=== PATIENT | female | born 1990 | race Caucasian/White ===

== ENCOUNTER 2018-07-01 09:01 | Emergency (ER) | payer OTHER, SELFPAY ==
[2018-07-01 09:26] VITALS: BP 163/93; PULSE 90; RESP 13; TEMP 36.7; O2SAT 100
--- NOTE | 2018-07-01 09:38 | ED_ITS ---
HPI - Extremity Injury (Lower) General Chief Complaint: Extremity Injury, Lower Stated Complaint: PAIN IN HIP MOVING DOWN LEFT LEG, HURTS TO WALK Time Seen by Provider: 07/01/18 09:15 Source: patient Mode of arrival: ambulatory Limitations: no limitations History of Present Illness HPI Narrative: Patient is a 27-year-old female who presents with left hip and leg pain. She does have history of sciatica but she feels like this is different. She denies any injury. She says it has been hurting off and on for the last couple of days but today is significantly worse. He has pain radiating from her left buttock all the way down to her toes. She works 500 of naproxen and Excedrin this morning without any relief. Related Data Previous Rx's Medication Instructions Recorded cyclobenzaprine 10 mg PO BID PRN #6 tab 09/13/17 hydrocodone-acetaminophen [[place]] 1 tab PO Q4H PRN #18 tab 09/13/17 oxycodone-acetaminophen [Percocet] 0 tab PO Q4HP PRN #20 tab 10/04/17 diazepam 5 mg PO Q12HR PRN #10 tab 07/01/18 meloxicam 7.5 mg PO DAILY PRN #14 tab 07/01/18 Allergies Allergy/AdvReac Type Severity Reaction Status Date / Time No Known Drug Allergies Allergy Verified 07/01/18 09:35 Review of Systems Review of Systems GENERAL: Denies chills, fatigue, malaise, fever, sweats, travel HEENT: Denies sinus pain, ear pain, sore throat, difficulty swallowing, neck pain RESPIRATORY: Denies dyspnea, cough, wheezing, hemoptysis, sputum. CARDIOVASCULAR: Denies chest pain, palpitations, orthopnea, edema GASTROINTESTINAL: Denies nausea, vomiting, abdominal pain, diarrhea, constipation, melena. : Denies dysuria, frequency, incontinence, hematuria, urinary retention, flank pain. MUSCULOSKELETAL see HPI SKIN: No rash, no erythema, no pruritus NEUROLOGIC: Numbness tingling, left leg, see HPI PSYCHIATRIC: No concerning psychosocial issues. 12 point review of systems is negative except for those stated above and HPI PFSH Surgical History History of third molar tooth extraction Social History Smoking Status: Never smoker Exam Initial Vital Signs Initial Vital Signs: Vital Signs Temperature 98.1 F 07/01/18 09:26 Pulse Rate 90 07/01/18 09:26 Respiratory Rate 13 07/01/18 09:26 Blood Pressure 163/93 H 07/01/18 09:26 Pulse Oximetry 100 07/01/18 09:26 GENERAL: Well-appearing, well-nourished and in no acute distress. HEENT: Head atraumatic,EOMI, pupils reactive CARDIOVASCULAR: Regular rate and rhythm without murmurs, rubs or gallops. RESPIRATORY: Breath sounds equal bilaterally, no wheezes rales or rhonchi. ABDOMEN: Soft, nontender. Normoactive bowel sounds all 4 quadrants. No guarding or rebound. EXTREMITIES: Normal range of motion, no clubbing or edema. Neurovascularly intact. Mild at tenderness in left buttock and hip area no erythema sensation intact in lower extremities and equal bilaterally strong peripheral pulses NEUROLOGICAL: Alert and oriented x4.Normal gait and speech. Cranial nerves II through XII grossly intact. SKIN: Warm, dry, no laceration, no petechiae, no rashes or lesions. Course Orders Ordered: Discontinued Medications Diazepam (Valium) 5 mg PO NOW ONE Stop: 07/01/18 09:46 Last Admin: 07/01/18 09:58 Dose: 5 mg Ketorolac Tromethamine (Toradol) 60 mg IM NOW ONE Stop: 07/01/18 09:46 Last Admin: 07/01/18 09:58 Dose: 60 mg Vital Signs - 8 hr 07/01/18 09:26 Temperature 98.1 F Pulse Rate 90 Respiratory Rate 13 Blood Pressure 163/93 H Pulse Oximetry 100 MDM - Extremity Injury (Lower) MDM Narrative Medical decision making narrative: patient is feeling only slightly better after Valium and Toradol. She says that she has had Percocet and [place] in the past for her sciatic pain. States today she will only be getting Meloxicam and Valium. She feels ready to go. Discharge Plan Departure Patient Disposition: Home Clinical Impression: Back pain Discharge Date/Time: 07/01/18 10:40 Interventions: ED Discharge Assessment Last Done: 07/01/18 10:39 Instructions: DI for Back Pain With Sciatica Activity Restrictions/Additional Instructions: *You have been diagnosed with back pain with sciatica *What to do: Light activity is encouraged, try heating pad *Continue to take medications as directed Valium 5 mg every 12 hr if needed for spasm Mobic 7.5 mg once a day if needed for qmpn-wz-qjavqogk pain do not combine with naproxen, Excedrin, Motrin, or Aleve, Advil or other NSAIDs *Follow up with your primary care provider in 2-3 days *Return to ER if you should have weakness, increasing pain, loss of urine or stool or any new, worsening or concerning symptoms Prescriptions: New meloxicam 7.5 mg tablet 7.5 mg PO DAILY PRN (Reason: pain, moderate) Qty: 14 RF: 0 diazepam 5 mg tablet 5 mg PO Q12HR PRN (Reason: muscle spasm) Qty: 10 RF: 0 No Action cyclobenzaprine 10 MG tablet 10 mg PO BID PRNQty: 6 RF: 0 hydrocodone-acetaminophen [[place]] 5 MG/325 MG tablet 1 tab PO Q4H PRNQty: 18 RF: 0 oxycodone-acetaminophen [Percocet] 5 MG/325 MG tablet PO Q4HP PRNQty: 20 RF: 0
[2018-07-01] MEDS: KETOROLAC 60 MG/2 ML VIAL IM (09:58)
[2018-07-01] MEDS: diazePAM 5 MG TABLET PO (09:58)
[2018-07-01 10:38] VITALS: BP 143/106; PULSE 88; RESP 22; O2SAT 100
[2018-07-01 10:39] VITALS: BP 138/61; PULSE 77; RESP 16; O2SAT 100
== END 2018-07-01 10:40 | disposition home or self-care (01) ==
PROVIDERS: Emergency Provider Emergency Medicine
DX: M54.9 Dorsalgia, unspecified (principal)
CPT/HCPCS: 96372; 99282; 99283; J1885

== ENCOUNTER 2025-01-13 08:38 | Emergency (ER) | payer OTHER, SELFPAY ==
[2025-01-13] VITALS (11 sets, daily range): BP systolic 121–139; BP diastolic 80–87; PULSE 73–82; RESP 14–21; TEMP 37.1; O2SAT 98–100; BMI 30.4
--- NOTE | 2025-01-13 08:56 | EKG_ITS ---
[address] [address] Test Date: 2025-01-13 Pat Name: Estee Holder Department: Room: Gender: Female Supervisor Engraving: ALVARADO : 1990 Requested By: Order Number: [id number] Reading MD: Sadiq Bower MD Measurements Intervals [place] Rate: 77 P: 34 CT: 180 QRS: 32 QRSD: 80 T: 47 QT: 370 QTc: 418 Interpretive Statements Normal sinus rhythm Cannot rule out Anterior infarct , age undetermined Electronically Signed On 01-13-2025 9:35:14 PDT by Sadiq Bower MD
--- NOTE | 2025-01-13 09:10 | PC.NURSE ---
aaliyah report with multiple visits to [facility] and [facility] for CP and auditory hallucinations
[2025-01-13 09:11] LABS: Add Manual Diff / Slide Review NO; Basophils Absolute Auto 0 /uL (0-100); Basophils Percent Auto 0.6 % (0-2); Eosinophils Absolute Auto 0 /uL (0-450); Eosinophils Percent Auto 0.6 % (2-4); Hematocrit 43.4 % (36-46); Hemoglobin 14.8 g/dL (12.0-16.0); Lymphocytes Absolute Auto 1500 /uL (1100-4500); Lymphocytes Percent Auto 23.4 % (25-40); Mean Corpuscular HGB Conc 34.1 % (30-36); Mean Corpuscular Hemoglobin 30.5 PG (26-34); Mean Corpuscular Volume 89.7 fL (80-100); Monocytes Absolute Auto 500 /uL (0-900); Monocytes Percent Auto 7.7 % (3-14); Neutrophils Absolute Auto 4400 /uL (1500-7000); Neutrophils Percent Auto 67.7 % (50-75); Platelet Count 215 X10^3/uL (150-400); Red Blood Cell Count 4.83 X10^6/uL (4.0-5.2); Red Cell Distribution Width 14.3 % (11.6-14.8); White Blood Cell Count 6.5 X10^3/uL (4.5-11.0)
[2025-01-13 09:19] LABS: D Dimer < 215 ng/ml (<500)
[2025-01-13 09:23] LABS: Alanine Aminotransferase 27 IU/L (<35); Albumin 4.7 g/dL (3.5-5.0); Albumin Globulin Ratio 1.5 (1.0-2.8); Alkaline Phosphatase 44 U/L (38-126); Aspartate Aminotransferase 32 IU/L (14-36); BUN Creatinine Ratio 18.4 (6-22); Bilirubin Total 0.8 mg/dL (0.2-1.3); Blood Urea Nitrogen 16 mg/dL (7-17); Calcium 9.5 mg/dL (8.4-10.2); Carbon Dioxide 23 mmol/L (22-32); Chloride 104 mmol/L (98-107); Creatine Kinase 111 U/L (30-135); Estimated Glomerular Filt Rate > 60 mL/min (>60); Globulin 3.1 g/dL (1.7-4.1); Glucose 98 mg/dL (70-100); HEMOLYSIS 16 (0-50); Magnesium 1.9 mg/dL (1.6-2.3); Potassium 4.1 mmol/L (3.4-5.1); Sodium 139 mmol/L (137-145); Total Protein 7.8 g/dL (6.3-8.2)
--- NOTE | 2025-01-13 09:30 | ED.ARRPALP ---
HPI - Arrhythmia/Palpitations General Chief Complaint: Arrhythmia/Palpitations Stated Complaint: Leonard off and on double heart beat. Time Seen by Provider: 01/13/25 09:00 History of Present Illness HPI narrative: Patient here for multiple complaints including palpitations generalized numbness tingling to the skull hands and feet, also a few days ago had epistaxis with ear fullness. Patient was seen by primary care recently and had blood work done. Patient denies any heart attack strokes diabetes. No personal or family history of arrhythmias or thyroid disease. Denies any new medications or foods or diet. No recent cough cold congestion fever chills. No new products. Related Data Previous Rx's Medication Instructions Recorded cyclobenzaprine 10 mg tablet 10 mg PO BID PRN #6 tabs 09/13/17 hydrocodone 5 mg-acetaminophen 325 1 tab PO Q4H PRN #18 tabs 09/13/17 mg tablet (Blaine) oxycodone-acetaminophen 5 mg-325 0 tab PO Q4HP PRN #20 tabs 10/04/17 mg tablet (Percocet) diazepam 5 mg tablet 5 mg PO Q12HR PRN muscle spasm #10 07/01/18 tabs meloxicam 7.5 mg tablet 7.5 mg PO DAILY PRN pain, moderate 07/01/18 #14 tabs Allergies Allergy/AdvReac Type Severity Reaction Status Date / Time No Known Drug Allergies Allergy Verified 07/01/18 09:35 Review of Systems Review of Systems Narrative: GENERAL: Negative chills, fatigue, malaise, fever, sweats. HEENT: Negative sinus pain, positive ear pain, negative sore throat, positive epistaxis RESPIRATORY: Negative dyspnea, cough CARDIOVASCULAR: Negative chest pain, positive palpitations GASTROINTESTINAL: Negative vomiting, nausea, abdominal pain : Negative dysuria, frequency, hematuria MUSCULOSKELETAL: Negative muscle or bony pain SKIN: Negative rash, skin lesions NEUROLOGIC: Negative weakness, positive tingling in numbness ROS Unobtainable: All systems reviewed & are unremarkable except as noted in HPI and below Patient History Surgical History (Updated 02/25/18 @ 06:07 by Conversion Provider) History of third molar tooth extraction Social History Smoking Status: Never smoker Smoking Status: Never smoker Exam Narrative Exam Narrative: GENERAL: in no distress, not toxic not dyspneic HEAD: Normocephalic. EYES: Pupils equal round ENT: Mucous membranes moist. NECK: Trachea midline. No thyromegaly CARDIOVASCULAR: Regular rate and rhythm no murmur RESPIRATORY: Clear to auscultation. Breath sounds equal bilaterally. No wheezes, rales, or rhonchi. GASTROINTESTINAL: Abdomen soft, non-tender EXTREMITIES: No gross deformities. BACK: No flank tenderness. NEURO: AOx4. Clear speech SKIN: Warm and dry PSYCH: Not anxious, is cooperative Initial Vital Signs Initial Vital Signs: Vital Signs Pulse Rate 82 01/13/25 08:44 Blood Pressure 139/81 01/13/25 08:44 Pulse Oximetry 98 01/13/25 08:44 Course Orders Ordered: ED Orders 01/13/25 08:55 Complete Blood Count AUTO DIFF Stat Comprehensive Metabolic Panel Stat D Dimer Stat Magnesium Stat PT [Prothrombin Time INR] Stat PTT Partial Thromboplastin Kan Stat Test Serum,Qual Stat TSH [Thyroid Stimulating Hormone] Stat Troponin & CK Cardiac Panel Stat 01/13/25 09:00 EKG-12 Lead Stat 01/13/25 09:29 XR chest 1V Stat 01/13/25 09:50 Covid-19 + FLU A/B + RSV - PCR Stat Vital Signs Vital signs: Vital Signs - 8 hr 01/13/25 08:44 01/13/25 08:44 01/13/25 08:57 Temperature 98.7 F Pulse Rate 82 75 Respiratory Rate 16 Blood Pressure 139/81 139/81 Pulse Oximetry 98 100 Oxygen Delivery Method Room Air 01/13/25 08:59 01/13/25 08:59 01/13/25 09:00 Temperature Pulse Rate 80 78 Respiratory Rate 14 19 Blood Pressure 129/86 Pulse Oximetry 100 100 Oxygen Delivery Method 01/13/25 09:00 01/13/25 09:30 01/13/25 09:30 Temperature Pulse Rate 77 Respiratory Rate 16 Blood Pressure 132/85 129/84 Pulse Oximetry 100 Oxygen Delivery Method 01/13/25 10:00 01/13/25 10:00 01/13/25 10:30 Temperature Pulse Rate 73 74 Respiratory Rate 17 14 Blood Pressure 130/85 Pulse Oximetry 100 100 Oxygen Delivery Method 01/13/25 10:30 Temperature Pulse Rate Respiratory Rate Blood Pressure 121/82 Pulse Oximetry Oxygen Delivery Method MDM - Arrhythmia/Palpitations Lab Data 01/13/25 08:55 01/13/25 08:55 Labs: Lab Results 01/13/25 01/13/25 Range/Units 08:55 09:50 WBC 6.5 (4.5-11.0) X10^3/uL RBC 4.83 (4.0-5.2) X10^6/uL Hgb 14.8 (12.0-16.0) g/dL Hct 43.4 (36-46) % MCV 89.7 (80-100) fL MCH 30.5 (26-34) PG MCHC 34.1 (30-36) % RDW 14.3 (11.6-14.8) % Plt Count 215 (150-400) X10^3/uL Neut % (Auto) 67.7 (50-75) % Lymph % (Auto) 23.4 L (25-40) % [place] % (Auto) 7.7 (3-14) % Eos % (Auto) 0.6 L (2-4) % Baso % (Auto) 0.6 (0-2) % Neut # (Auto) 4400 (3460-6465) /uL Lymph # (Auto) 1500 (9520-9644) /uL [place] # (Auto) 500 (0-900) /uL Eos # (Auto) 0 (0-450) /uL Baso # (Auto) 0 (0-100) /uL PT 12.8 H (9.4-12.5) SECONDS INR 1.1 (0.9-1.3) APTT 49 H (25.1-36.5) SECONDS D-Dimer < 215 (<500) ng/ml Sodium 139 (137-145) mmol/L Potassium 4.1 (3.4-5.1) mmol/L Chloride 104 (98-107) mmol/L Carbon Dioxide 23 (22-32) mmol/L BUN 16 (7-17) mg/dL Creatinine 0.87 (0.52-1.04) mg/dL Estimated GFR > 60 (>60) mL/min BUN/Creatinine Ratio 18.4 (6-22) Glucose 98 (70-100) mg/dL Calcium 9.5 (8.4-10.2) mg/dL Magnesium 1.9 (1.6-2.3) mg/dL Total Bilirubin 0.8 (0.2-1.3) mg/dL AST 32 (14-36) IU/L ALT 27 (<35) IU/L Alkaline Phosphatase 44 (38-126) U/L Total Creatine Kinase 111 (30-135) U/L Troponin I < 0.012 (0.01-0.034) ng/mL Total Protein 7.8 (6.3-8.2) g/dL Albumin 4.7 (3.5-5.0) g/dL Globulin 3.1 (1.7-4.1) g/dL Albumin/Globulin Ratio 1.5 (1.0-2.8) TSH 2.11 (0.47-4.68) uIU/mL Serum , Qual Negative (Negative) SARS-CoV-2 (PCR) Negative (Negative) Influenza A (RT-PCR) Flu a negative (NEGATIVE) Influenza B (RT-PCR) Flu b negative (NEGATIVE) RSV (PCR) Negative (Negative) Imaging Data Chest x-ray: Radiologist's Impresson: [address] [address] XRay Report Signed Patient: Estee Holder MR#: [id number] : 1990 Acct:[id number] Age/Sex: 34 / F Date of Service: 01/13/25 Loc: ED Accession Number: [id number] Procedure: XR chest 1V Ordering Provider: Chirag Hammonds MD PROCEDURE: XR CHEST 1V INDICATIONS: Palpitations/chest pain TECHNIQUE: One view of the chest was acquired. COMPARISON: None. FINDINGS: Surgical changes and devices: None. Lungs and pleura: Lungs are clear. No pleural effusions or pneumothorax. Mediastinum: Mediastinal contours appear normal. Heart size is normal. Bones and chest wall: No suspicious bony lesions. Overlying soft tissues appear unremarkable. IMPRESSION: No acute cardiopulmonary abnormality is seen. Dictated by: Janae Hayes MD, PhD on 01/13/2025 at 10:16 Approved by: Janae Hayes MD, PhD on 01/13/2025 at 10:18 [facility] Narrative Medical decision making narrative: Patient here for multiple complaints including palpitations generalized numbness tingling to the skull hands and feet, also a few days ago had epistaxis with ear fullness. Patient was seen by primary care recently and had blood work done. Patient denies any heart attack strokes diabetes. No personal or family history of arrhythmias or thyroid disease. Denies any new medications or foods or diet. No recent cough cold congestion fever chills. No new products. After history and exam, CBC CMP TSH magnesium troponin D-dimer chest x-ray EKG [facility] Medical records reviewed: No recent visit here for this complaint Differential considered: Includes but not limited to hypothyroidism hyperthyroidism SVT arrhythmia PVC hypokalemia hyponatremia electrolyte imbalance Lab Test results independently reviewed as above. Pertinent findings: WBC 6.5 hemoglobin 14.8 D-dimer less than 215 sodium 139 potassium 4.1 glucose 98 calcium 9.5 magnesium 1.9 troponin less than 0.012 negative TSH 2.11 INR 1.1 Independently reviewed EKG normal sinus rhythm rate [address] elevation or depression Imaging studies independently reviewed: Chest x-ray no acute finding Consultations: None indicated Treatments: None indicated Re-evaluations: 12:04 p.m.. Updated patient results. No arrhythmias seen on monitor while course of stay. Exam and laboratory studies images are reassuring. Will need outpatient Zio patch or Holter monitoring. She is moving to her family and will need to find a new family doctor she states. Return precautions reviewed. She desires discharge home. Discussion: Appropriate for discharge home exam is reassuring. Return precautions reviewed with patient. Laboratory studies EKG imaging reassuring. No new prescriptions are indicated. She desires discharge home. Patient is numbness tingling nonspecific but is symmetric and bilateral. May be anxiety related. Epistaxis nonspecific but none here. Diagnosis: Palpitations Discharge Plan Departure Patient Disposition: Home Clinical Impression: Palpitations Instructions: Premature Ventricular Beats, DI for Ambulatory Cardiac Monitoring, DI for Arrhythmias Activity Restrictions/Additional Instructions: Your exam and laboratory studies image studies are reassuring. Please see family doctor or call provided clinic for follow up for scheduling for Holter monitoring or Zio patch for your palpitations. No new medications are indicated at this time. Return if worse if any questions or concerns. Please call provided primary care provider phone number to obtain family doctor, Prescriptions: No Action cyclobenzaprine 10 MG tablet 10 mg PO BID PRNQty: 6 0RF hydrocodone-acetaminophen [Blaine] 5 MG/325 MG tablet 1 tab PO Q4H PRNQty: 18 0RF oxycodone-acetaminophen [Percocet] 5 MG/325 MG tablet 0 tab PO Q4HP PRNQty: 20 0RF meloxicam 7.5 mg tablet 7.5 mg PO DAILY PRN (Reason: pain, moderate) Qty: 14 0RF diazepam 5 mg tablet 5 mg PO Q12HR PRN (Reason: muscle spasm) Qty: 10 0RF Stand Alone Forms: Patient Portal/API/Survey
[2025-01-13 09:32] LABS: Troponin I < 0.012 ng/mL (0.01-0.034)
[2025-01-13 09:38] LABS: INR 1.1 (0.9-1.3); Prothrombin Time 12.8 SECONDS (9.4-12.5)
[2025-01-13 09:40] LABS: PTT Partial Thromboplastin Tim 49 SECONDS (25.1-36.5)
[2025-01-13 09:47] LABS: Pregnancy Test Serum,Qual Negative (Negative)
[2025-01-13 10:34] LABS: COVID-19 CEPHEID 4-PLEX PCR Negative (Negative); Influenza A - CEPHEID Flu A NEGATIVE (NEGATIVE); Influenza B - CEPHEID Flu B NEGATIVE (NEGATIVE); Respiratory Syncytial Virus Negative (Negative)
[2025-01-13 11:33] LABS: Thyroid Stimulating Hormone 2.11 uIU/mL (0.47-4.68)
== END 2025-01-13 12:13 | disposition home or self-care (01) ==
PROVIDERS: Emergency Provider Emergency Medicine
DX: R00.2 Palpitations (principal); R07.9 Chest pain, unspecified
CPT/HCPCS: 0241U; 36415; 71045; 80053; 82550; 83735; 84443; 84484; 84703; 85025; 85379; 85610; 85730; 93005; 99283; 99284

== ENCOUNTER 2025-02-28 16:26 | Emergency (ER) | payer OTHER, SELFPAY ==
[2025-02-28 16:29] VITALS: BP 133/98; PULSE 91; RESP 18; TEMP 36.1; O2SAT 100; BMI 28.0
--- NOTE | 2025-02-28 16:37 | PC.NURSE ---
Addendum entered by Dee Dee Spence R.N. 02/28/25 16:47: Patient came back into ED stating she wanted to be seen. During triage patient's father told registration that he had concerns about hallucinations and about the patient. Vangie MORRISON was consulted. Original Note: During triage patient states that if she isn't seen immediately she is going to go home. Stated she had gone to hospital on [address] and they didn't take me seriously. Explained process to her and that there were not currently rooms available but that she would be seen. At end of triage patient was again explained the process and stated that she was just going to go home. When asked why stated I just know how this is going to go and I'm just going to go home. Patient walked out of triage under own power and left ED department through front door.
--- NOTE | 2025-02-28 17:26 | PC.NURSE ---
Addendum entered by Latanya Briones R.N. 02/28/25 17:34: pt left ER but is still in waiting room area with ana who doesn't want pt to leave. Issue being handled in lobby-- with FLIGHT STEWARD, charge nurse, and provider aware. keeping this pt on the tracker (not discharging off computer) while determining if pt should be brought back to room or DC'd Original Note: Pt arrived to ER to address tingling sensations of head and both arms beginning earlier today that pt wanted addressed but was clear that she didn't want to stay long. I informed pt things may take a little time, pt decided to then leave without being seen by ER doc.
--- NOTE | 2025-02-28 19:06 | CM.SWNOTE ---
Addendum entered by PRINCE Wray 02/28/25 19:12: [facility] referral placed, follow up call by VOA on 03/01 at 9:00am. Pt family information also relayed to [facility] Care Crisis line. Vangie Reeves, [facility] Original Note: ED TRAINING LEAD Assessment Note: TRAINING LEAD - Membership Solicitor Assessment TRAINING LEAD - Membership Solicitor Assessment Start: 02/28/25 17:51 Freq: Status: Discharge Protocol: Document 02/28/25 17:52 MW (Rec: 02/28/25 19:06 MW [id number]) TRAINING LEAD/Membership Solicitor Assessment Time Spent with Patient Start date 02/28/25 Visit Start Time 17:00 End date 02/28/25 Visit End Time 17:45 Total time Care Management spent on 45 minutes in total patient visit-in minutes Mental Health Screening Include Onset, Duration, Intensity Presenting Problem Patient presented to the ED with her stepfather for anxiety and endorsing a stinging sensation that is moving throughout my body. Precipitating Event(s) Per LUIS ALBERTO, patient has presented at an ED 7 times in the last 3 months (12/21 - [facility], - [facility], 01/13 - [facility], 02/13,) for similar symptoms. Per ED report from 02/14/25 at [facility], patient endorsed SI and a history of a schizoaffective disorder. Per ED report, patient has a history of admission at [facility] at the beginning of January 2025. Patient Strengths Patient is supported by their stepfather, Vickey. Patient seems to be seeking help for medical issues. Current Behavioral Health Provider(s) Pt declines any MH providers Include Facility, Provider, Ph. # at this time. Psych. Hx Mental Health and Chemical No medications for psychiatric Dependency issues, no hx reported. Family Hx of Behavioral Abuse Per pt stepfather, pt's younger brother experienced years of substance use ( Benedryl and Heroin) and by overdose in 2018. Psychiatric Hospitalizations (date(s)/ Per pt stepfather, Pt was location) admitted at [facility] on 02/04/25 and later transferred to [facility] on 02/08/25. Both times, pt left AMA. Psychosocial information & Support Patient is a 34yo female, Systems resident of [place] ( currently staying with parents in [place]). Patient has a partner of 6 years in [place] who is supervising the patient's 2 daughters (9 and 10yo). Per pt stepfather, the patient has not been able to take care of children for the past few months due to her delusions and anxiety. School/Work Not currently working. Substance Abuse Screening Include Onset, Duration, Intensity Presenting Problem Per pt stepfather, pt ingests approximately 10-20 Benedryl pills every day. Patient did not disclose this to this TRAINING LEAD during assessment. Legal Concerns Legal Matters - Outstanding Issues None reported. Mental Status Orientation (Person/Place/Time) AOx3 Affect (Congruent with Mood?) Flat, congruent with mood Thought Content - Specify/Describe Per pt stepfather, patient Obsessions, Delusions, Hallucinations states she believes she has been possessed by [employer] and cannot return to her [place] home due to the belief that she is being survielled via [employer] cameras. Patient once expressed in a ED presentation that she believes she has parasites in her body . Patient denied hallucinations or delusions with this TRAINING LEAD. Thought Processes (Wjovuzm-Wljidzjq-Fozl Logical, goal directed Kreldslb-Vydrspur-Waznfesatl- Lmtblxihfwvniw-Izcnqkl-Zlntlhjjtghd- Thought Blocking) Speech (Itvway-Dcgu-Awtwgmc-Rapid-Soft- Slow, pressured, delayed Loud-Pressured) Motor (Rnhuar-Trtsommjb-Uunt-Other) Slow Insight (Ggwm-Dhfh-Xnwf/Limited) Poor Judgement (Jfiv-Fzfq-Jtcm/Limited) Poor Impulse Control (Adequate-Impaired) Impaired Memory (Oqeuxdedj-Wyilpt-Kqvava, Impaired Impaired-Intact) Concentration (Intact-Impaired) Intact Attention (Intact-Impaired) Impaired Behavior (Appropriate-Inappropriate) Inappropriate Additional Comment Patient is anxious and guarded , did not want to stay for medical assessment by ED provider. Did not want to participate in MH treatment/ assessment. Risk Assessment Suicidal Ideation (Plan) No Homicidal Ideation (Plan) No Comment [place]-SUICIDE SEVERITY RATING SCALE 1) Have you wished you were or wished you could go to sleep and not wake up? NO 2) Have you actually had any thoughts of killing yourself? NO Patient denied SI/HI with this TRAINING LEAD. Per ED Report on , patient endorsed SI with no plan or intent. Also in the report, it stated a history of suicide attempt in 2017. Intervention Intervention Reviewed chart and discussed with ED Provider pt's medical status and discharge needs. ED TRAINING LEAD meets with patient. Patient appeared to be guarded and flat in affect, questioned TRAINING LEAD involvement as she wants to get checked out for the burning sensations all over my body. TRAINING LEAD discusses medical clearance and pt initally agreed to ED Provider assessment. ED TRAINING LEAD has a lengthy discussion with pt stepfather who states they have been dealing with pt delusions for the past few months and confirmed pt non compliance with treatment. Pt father explains they believe pt is gravely disabled due to pt not sleeping regularly, not eating at meals presented and delusions which is affecting their life. Pt father hopeful to write a statement for involuntary treatment. At this time, it is the opinion of this TRAINING LEAD that patient would benefit from inpatient psychiatric hospitalization for grave disability and crisis stabilization. After 20 minutes, pt walked out of the Emergency Department and notified RN that she did not want to stay for the ED assessment. TRAINING LEAD consults with [facility] DCR Federico Connor and discussed pt case. It is reported that no placement can even be attempted without a MD clearance. Recommended [facility] referral in [facility] in the meantime. TRAINING LEAD found pt and stepfather in waiting room, discussed that if pt not able to wait for medical assessment, no further treatment or dispatch can be completed at this time. They verbalized understanding and accepted [facility] contact information. Discussed how to utilize the program from home and pt will be contacted the following day. TRAINING LEAD informs ED provider, Dr. Comer and Dr. Reyes, who indicates agreement. TRAINING LEAD informs RN Tacho and Charge Nurse. Plan RA Plan Patient not able to continue DCR assessment due to Voluntary Discharge, [facility] team referral sent. Patient and patient stepfather provided with [facility] number in case of community dispatch needed. Vangie Reeves, SECURITY TEST ENGINEER
== END 2025-02-28 18:17 | disposition left against medical advice (07) ==
PROVIDERS: Emergency Provider Emergency Medicine
DX: F41.9 Anxiety disorder, unspecified (principal)
CPT/HCPCS: 99283